=== PATIENT | female | born 1950 | race Caucasian/White ===

== ENCOUNTER 2024-06-27 11:52 | Emergency (ER) | payer OTHER ==
[2024-06-27 12:19] LABS: Absolute Eosinophils 0.3 K/uL (0-0.5); Absolute Monocytes 0.4 K/uL (0.1-1.3); Absolute Neutrophil 2.7 K/uL (1.8-8.0); Basophils % 0.9 % (0-1.3); Eosinophils % 5.5 % (0-4.4); Hematocrit 34.8 % (36.0-45.0); Lymphocytes % 37.2 % (15.3-44.8); MCH 32.5 pg (27.0-35.0); MCHC 34.6 g/dL (32.0-36.0); MCV 93.8 fL (80-100); MPV 8.8 fL (7.6-11.3); Neutrophils % 49.4 % (41.7-73.7); Platelets 222 thou/uL (152-406); RBC Red Blood Cell Count 3.71 M/uL (3.86-4.86); Red Cell Distribution Width 13.3 % (12.1-15.2)
--- NOTE | 2024-06-27 12:42 | RAD REPORT ---
EXAM: CT brain without contrast HISTORY: TRAUMA COMPARISON: none TECHNIQUE: Multiple contiguous axial images were obtained and a CT of the brain without contrast. Sag ittal and coronal reformats were performed. FINDINGS: No evidence of hydrocephalus, intracranial hemorrhage, or extra-axial fluid collection. The brain is normal in morphology. The calvarium is intact. The visualized paranasal sinuses and mastoid air cells are essentially clear . IMPRESSION: No evidence of acute intracranial abnormality. EXAM: CT of the cervical spine without contrast HISTORY: TRAUMA COMPARISON: None TECHNIQUE: Multiple contiguous axial images were obtained in a CT of the cervical spine without contr ast. Sagittal and coronal reformats were performed. FINDINGS: The vertebral bodies demonstrate normal height and alignment. Mildly displaced fracture at the base of C7 spinous process, possibly with disruption of the ligamentum flavum left of midline... No degenerative changes are present. No prevertebral soft tissue swelling is seen. The posterior facets are well aligned. Normal alignment of the skull base with the cervical spine is seen. The lung apices are unremarkable. IMPRESSION: Mildly displaced fracture at the base of C7 spinous process, possibly with disruption of the ligament um flavum left of midline. THIS REPORT CONTAINS FINDINGS THAT MAY BE CRITICAL TO PATIENT CARE. The findings were verbally commun icated via telephone to Jaci Lama MD on 06/27/2024 12:39 PM.
[2024-06-27] MEDS ORDERED: FENTANYL CITR 100 MCG/2 ML ONE ×2 (12:48→13:56)
--- NOTE | 2024-06-27 13:16 | RAD REPORT ---
EXAMINATION: XR PELVIS CLINICAL INDICATION: Female, 74 years old. PAIN Bed Name: 8 TECHNIQUE: AP Pelvis radiograph was obtained. COMPARISON: No prior exam. FINDINGS: No evidence of fracture or dislocation. Normal alignment. No evidence of AVN. Advanced left hip degenerative changes. Right hip arthroplasty in place. Soft tissues are unremarkable. IMPRESSION: No acute osseous abnormalities. Advanced left hip joint degenerative changes.
--- NOTE | 2024-06-27 13:16 | RAD REPORT ---
EXAMINATION: ONE VIEW CHEST XR CLINICAL INDICATION: Female, 74 years old.,PAIN TECHNIQUE: Frontal chest projection is submitted. Examination is limited by patient positioning and t echnique. COMPARISON: No prior exam. FINDINGS: The lungs are well inflated and clear. No pneumothorax or sizable effusion. The heart is normal in s ize. Mediastinal contours are unremarkable. IMPRESSION: No acute intrathoracic abnormalities.
--- NOTE | 2024-06-27 13:18 | RAD REPORT ---
EXAMINATION: XR Femur Right CLINICAL INDICATION: Female, 74 years old. DEFORMITY TECHNIQUE: 2 view radiograph of the right femur were obtained. COMPARISON: No prior exam. FINDINGS: No evidence of acute fracture. Right hip arthroplasty with cerclage wire near the tip of th e femoral stem in place. Partially healed oblique mid shaft femur fracture, with approximately 2.5 cm cortex overlap anteriorly, and medial apex angulation. No evidence of arthropathy or other focal b one lesion. Soft tissues are unremarkable. IMPRESSION: Partially healed displaced and angulated periprosthetic mid shaft femur fracture as above.
--- NOTE | 2024-06-27 13:18 | ER ---
Nurse's Notes [facility] Name: Hilaria Clark Age: 74 yrs Sex: Female : 1950 Arrival Date: 06/27/2024 Time: 11:52 Bed 8 Private MD: Diagnosis: Fracture of shaft of femur;C7 fracture Presentation: 06/27 11:55 Chief complaint: EMS states: pt tripped and fell on her backside, c/o pain to right iw hip, felt a pop when they moved her. Coronavirus screen: At this time, the client does not indicate any symptoms associated with coronavirus-19. Ebola Screen: No symptoms or risks identified at this time. Initial Sepsis Screen: Does the patient meet any 2 criteria? No. Patient's initial sepsis screen is negative. Does the patient have a suspected source of infection? No. Patient's initial sepsis screen is negative. Risk Assessment: Do you want to hurt yourself or someone else? Patient reports no desire to harm self or others. Onset of symptoms was June 27, 2024. 11:55 Method Of Arrival: EMS: [facility] iw 11:55 Acuity: ROSELINE 3 iw 11:57 Care prior to arrival: Medication(s) given: fentanyl 50 mcg IVP IV initiated. 18 GA, in iw the right antecubital area. - Immunization history:: Adult Immunizations up to date. - Infectious Disease History:: Denies. - Social history:: Smoking status: Patient denies any tobacco usage or history of. Screenin:18 [facility] ED Fall Risk Assessment (Adult) History of falling in the last 3 months, ld1 including since admission Yes- single mechanical fall (1 pt) Confusion or Disorientation No (0 pts) Intoxicated or Sedated No (0 pts) Impaired Gait Yes (1 pt) Mobility Assist Device Used No (0 pt) Altered Elimination No (0 pt) Score/Fall Risk Level 0 - 2 = Low Risk Oriented to surroundings, Hourly rounding (assess needs \T\ fall precautionary measures) done. Abuse screen: Denies threats or abuse. Denies injuries from another. Nutritional screening: No deficits noted. Tuberculosis screening: No symptoms or risk factors identified. Assessment: 12:18 General: Appears in no apparent distress. uncomfortable, Behavior is calm, cooperative, ld1 appropriate for age. Pain: Complains of pain in right hip Pain does not radiate. Pain currently is 8 out of 10 on a pain scale. Quality of pain is described as throbbing, Pain began suddenly, Is continuous. Neuro: Level of Consciousness is awake, alert, obeys commands, Oriented to person, place, time, situation. Cardiovascular: Capillary refill < 3 seconds Patient's skin is warm and dry. Respiratory: Airway is patent Respiratory effort is even, unlabored. GI: Abdomen is flat, non-distended. : No signs and/or symptoms were reported regarding the genitourinary system. EENT: No signs and/or symptoms were reported regarding the EENT system. Derm: No signs and/or symptoms reported regarding the dermatologic system. Musculoskeletal: No signs and/or symptoms reported regarding the musculoskeletal system. Vital Signs: 11:56 BP 142 / 88; Pulse 78; Resp 18; Temp 98.4; Pulse Ox 96% on R/A; Pain 10/10; iw 11:56 Pain Scale: Adult iw ED Course: 11:54 Patient arrived in ED. iw 11:56 Triage completed. iw 11:56 Jaci Lama MD is Attending Physician. sw6 11:58 Arm band placed on. iw 12:15 Basic Metabolic Panel Sent. cc6 12:15 CBC with Diff Sent. cc6 12:18 oJvana Fleming, RN is Primary Nurse. ld1 12:18 Patient has correct armband on for positive identification. Placed in gown. Bed in low ld1 position. Call light in reach. Side rails up X2. Pulse ox on. NIBP on. Door closed. Noise minimized. Warm blanket given. 12:18 No provider procedures requiring assistance completed. ld1 12:19 CT Head C Spine In Process Unspecified. EDMS 12:21 Maintain EMS IV. Dressing intact. Good blood return noted. Site clean \T\ dry. Gauge \T\ ld 1 site: 20g RFA. 12:44 Pelvis XRAY In Process Unspecified. EDMS 12:45 XRAY Chest (1 view) In Process Unspecified. EDMS 12:45 Femur Right In Process Unspecified. EDMS 13:00 INITIATED TRANSFER WITH MADELYN AT [facility]. bc6 13:05 bed accepted with [facility] FOR [facility] ER WITH DR JAVIER. bc6 13:31 [facility] accepted transfer. bc6 14:04 Patient transferred, IV remains in place. ld1 Administered Medications: 12:51 Drug: fentaNYL (PF) IVP 50 mcg IVP once Route: IVP; Site: right antecubital; ld1 13:58 Drug: fentaNYL (PF) IVP 50 mcg IVP once Route: IVP; Site: right antecubital; ld1 Medication: 12:18 VIS not applicable for this client. ld1 Outcome: 13:17 ER care complete, transfer ordered by . sw6 14:04 Transferred by ground EMS ld1 14:04 Condition: stable 14:04 Instructed on the need for transfer, 14:04 Patient left the ED. ld1 Signatures: Dispatcher [employer] EDMayra Smith RN RN Jovana Fleming RN RN ld1 Thu [place] 6 Jaci Lama MD MD [facility] Nelda Farah cc6
--- NOTE | 2024-06-27 13:18 | EDPHYS ---
Physician Documentation [facility] Name: Hilaria Clark Age: 74 yrs Sex: Female : 1950 Arrival Date: 06/27/2024 Time: 11:52 Bed 8 Private MD: ED Physician Jaci Lama HPI: 06/27 12:03 This 74 yrs old Female presents to ER via EMS with complaints of Hip Pain, sw6 Fall Injury. 12:03 The patient or guardian reports pain. that occurred at home, sustained from a fall, sw6 from a standing position, The patient was discovered one hour after the incident. The complaints affect the pelvis. Onset: The symptoms/episode began/occurred 1 hour(s) ago. Modifying factors: the symptoms are aggravated by any movement. The patient presents from home and EMS for evaluation status post mechanical trip and fall that occurred about an hour or so ago. She does complain of pain to her right hip. She is unable to get up and did need assistance by EMS. No pain medication given prior to arrival. She does not take any blood thinners. She has had her right hip replaced twice in the past. She denies any headache or neck pain. No arm pain. No chest pain or pressure. Here for evaluation.. - Immunization history:: Adult Immunizations up to date. - Infectious Disease History:: Denies. - Social history:: Smoking status: Patient denies any tobacco usage or history of. ROS: 12:03 Constitutional: Negative for fever, chills, and weight loss, Cardiovascular: Negative sw6 for chest pain, palpitations, and edema, Respiratory: Negative for shortness of breath, cough, wheezing, and pleuritic chest pain, Abdomen/GI: Negative for abdominal pain, nausea, vomiting, diarrhea, and constipation, 12:03 MS/extremity: Positive for pain, 12:03 All other systems are negative, Exam: 12:03 Constitutional: This is a well developed, well nourished patient who is awake, alert, sw6 and in no acute distress. Neck: Trachea midline, no thyromegaly or masses palpated, and no cervical lymphadenopathy. Supple, full range of motion without nuchal rigidity, or vertebral point tenderness. No Meningismus. Cardiovascular: Regular rate and rhythm with a normal S1 and S2. No gallops, murmurs, or rubs. Normal PMI, no JVD. No pulse deficits. Respiratory: Lungs have equal breath sounds bilaterally, clear to auscultation and percussion. No rales, rhonchi or wheezes noted. No increased work of breathing, no retractions or nasal flaring. Abdomen/GI: Soft, non-tender, with normal bowel sounds. No distension or tympany. No guarding or rebound. No evidence of tenderness throughout. Skin: Warm, dry with normal turgor. Normal color with no rashes, no lesions, and no evidence of cellulitis. Neuro: Awake and alert, GCS 15, oriented to person, place, time, and situation. Cranial nerves II-XII grossly intact. Motor strength 5/5 in all extremities. Sensory grossly intact. Cerebellar exam normal. Normal gait. 12:03 Musculoskeletal/extremity: Pelvis is stable but with tenderness on the right side. She has decreased range of motion of the right hip due to pain. +2 dorsalis pedis bilaterally. Full range of motion of her bilateral knees and ankles.. Vital Signs: 11:56 BP 142 / 88; Pulse 78; Resp 18; Temp 98.4; Pulse Ox 96% on R/A; Pain 10/10; iw 11:56 Pain Scale: Adult iw MDM: 11:56 Medical Screening Exam initiated 12:03 Differential diagnosis: hip fracture, intertrochanteric fracture, femoral neck sw6 fracture, femoral shaft fracture, strain. Data reviewed: vital signs, nurses notes, EMS record. 13:17 Data reviewed: lab test result(s), radiologic studies, CT scan, plain films. ED course: The patient is doing well hernia. The CT of her head shows no acute intracranial abnormalities. The CT of her cervical spine shows a C7 fracture. A cervical collar was applied at bedside. She did have a recent extensive neck surgery performed at [facility] earlier this year and there is concern that the fracture may not be an acute injury but rather a known result of her recent surgery. The x-ray of her pelvis shows no acute osseous injuries however the x-ray of her right femur does show a fracture. She was given pain medication here in the ER. She does require admission for continued management. As she did have the recent cervical spine surgery at [facility] [place] the patient does desire to be transferred there. Spoke with Dr. Sousa with the trauma surgery service and the patient was accepted for admission for continued management. She is pending transportation.. 06/27 12:03 Order name: Basic Metabolic Panel; Complete Time: 13:20 [facility] 06/27 13:20 Interpretation: Within normal limits. 06/27 12:03 Order name: CBC with Diff; Complete Time: 13:20 06/27 13:20 Interpretation: Within normal limits. 06/27 12:03 Order name: Type And Screen; Complete Time: 13:54 06/27 13:55 Interpretation: Within normal limits. 06/27 12:03 Order name: CK; Complete Time: 13:20 06/27 13:20 Interpretation: Within normal limits. 06/27 12:03 Order name: CT Head C Spine; Complete Time: 13:20 06/27 13:20 Interpretation: Abnormal. 06/27 12:03 Order name: Pelvis XRAY; Complete Time: 13:20 [facility] 06/27 13:20 Interpretation: No acute disease. 06/27 12:03 Order name: XRAY Chest (1 view); Complete Time: 13:20 06/27 13:20 Interpretation: No acute disease. 06/27 12:29 Order name: Femur Right; Complete Time: 13:20 EDMS 06/27 13:21 Interpretation: Abnormal. 06/27 12:03 Order name: Labs collected and sent; Complete Time: 12:21 Administered Medications: 12:51 Drug: fentaNYL (PF) IVP 50 mcg IVP once Route: IVP; Site: right antecubital; ld1 13:58 Drug: fentaNYL (PF) IVP 50 mcg IVP once Route: IVP; Site: right antecubital; ld1 Disposition Summary: 06/27/24 13:17 Transfer Ordered Notes: Transfer Location: [facility] Reason: Higher level of care sw6 Condition: Serious sw6 Problem: new Symptoms: are unchanged Accepting Physician: Dr. Aliyah Sousa(06/27/24 14:04) ld1 Diagnosis - Fracture of shaft of femur sw6 - C7 fracture Forms: - Medication Reconciliation Form - SBAR form Signatures: Dispatcher [employer] EDMS Jovana Fleming RN RN ld1 Jaci Lama MD MD sw6 Corrections: (The following items were deleted from the chart) 12:04 12:04 Head C Spine MPR Wo Con+CT.RAD.BRZ ordered. EDMS EDMS 12:04 12:04 Pelvis+RAD.RAD.BRZ ordered. EDMS EDMS 12:04 12:04 BASIC METABOLIC PANEL+C.LAB.BRZ ordered. EDMS EDMS 12:04 12:04 CBC+H.LAB.BRZ ordered. EDMS EDMS 12:04 12:04 TYPE AND SCREEN+BB.LAB.BRZ ordered. EDMS EDMS 12:04 12:04 CREATINE PHOSPHOKINASE+C.LAB.BRZ ordered. EDMS EDMS 12:04 12:04 Chest Single View+RAD.RAD.BRZ ordered. EDMS EDMS 14:04 13:17 Dr. Aliyah Sousa sw6 ld1
[2024-06-27 14:26] VITALS: BP 142/88; TEMP 98.4; O2SAT 96
== END 2024-06-27 14:04 | disposition short-term general hospital (02) ==
LOC: ER 11:52
DX: S72.301A Unspecified fracture of shaft of right femur, initial encounter for closed fracture (principal); M97.01XA Periprosthetic fracture around internal prosthetic right hip joint, initial encounter; S12.600A Unspecified displaced fracture of seventh cervical vertebra, initial encounter for closed fracture; W01.0XXA Fall on same level from slipping, tripping and stumbling without subsequent striking against object, initial encounter; Y92.009 Unspecified place in unspecified non-institutional (private) residence as the place of occurrence of the external cause; Z96.641 Presence of right artificial hip joint
CPT/HCPCS: 85025; 80048; 36415; 86900; 86850; 82550; 86901; 70450; 72125; 71045; 72170; 73552; 96374; 99285; J3010 ×2